=== PATIENT | male | born 1930 | race Caucasian/White ===

== ENCOUNTER 2017-01-30 19:23 | Emergency (ER) | payer MEDICARE, BC ==
[2017-01-30 19:45] VITALS: BP 114/64
--- NOTE | 2017-01-30 19:59 | EDM.PDOC ---
ED HPI GENERAL MEDICAL PROBLEM - General Chief Complaint: Wound Recheck Stated Complaint: BLEEDING FROM WOUND Time Seen by Provider: 01/30/17 19:40 Source of Information: Reports: Patient, Family History Limitations: Reports: No Limitations - History of Present Illness INITIAL COMMENTS - FREE TEXT/NARRATIVE: 86 YO WM presents to ER for wound recheck. Pt was seen by Dr Marc and had a lesion to left side of rastafari and had 4 sutures placed. Pt reports it started bleeding today prompting concern and ER evaluation. Pt without any other complaints. Denies pain, redness or discharge from wound Onset: Today Onset Date: 01/30/17 Onset Time: 17:00 Location: Reports: Face Severity: Mild Improves with: Reports: None Worsens with: Reports: None Associated Symptoms: Reports: No Other Symptoms Treatments [employer]: Reports: Dressing(s) - Related Data Allergies Allergy/AdvReac Type Severity Reaction Status Date / Time No Known Allergies Allergy Verified 04/14/13 15:51 Home Meds: Home Meds Acetaminophen [Tylenol] PRN 04/14/13 [History] Ascorbic Acid [Vitamin C] 500 mg PO DAILY 04/14/13 [History] Ergocalciferol (Vitamin D2) [Calciferol] 2 PO DAILY 04/14/13 [History] Omeprazole 20 mg PO BIDAC 04/14/13 [History] Sodium Chloride [Saline Nasal [place]] 1 spray NASBOTH PRN 04/14/13 [History] Vitamin E 400 unit PO DAILY 04/14/13 [History] guaiFENesin [Mucus Relief] 600 mg PO BID PRN 04/14/13 [History] Acetaminophen/HYDROcodone [Lortab 500-5 MG] 1 tab PO QID PRN #25 tablet [Rx] Social & Family History - Tobacco Use Years of Tobacco use: 38 Used Tobacco, but Quit: Yes Month Tobacco Last Used: 20 years ago - Recreational Drug Use Recreational Drug Use: No ED ROS GENERAL - Review of Systems Review Of Systems: See Below Constitutional: Reports: No Symptoms HEENT: Reports: No Symptoms Respiratory: Reports: No Symptoms Cardiovascular: Reports: No Symptoms Endocrine: Reports: No Symptoms GI/Abdominal: Reports: No Symptoms : Reports: No Symptoms Musculoskeletal: Reports: No Symptoms Skin: Reports: Other (left wound recheck- no active bleeding) Neurological: Reports: No Symptoms Psychiatric: Reports: No Symptoms Hematologic/Lymphatic: Reports: No Symptoms Immunologic: Reports: No Symptoms ED EXAM, SKIN/RASH Exam: See Below Exam Limited By: No Limitations General Appearance: Alert, WD/WN, No Apparent Distress Head: Atraumatic, Normocephalic Neck: Normal Inspection, Supple, Non-Tender, Full Range of Motion Respiratory/Chest: No Respiratory Distress, Lungs Clear, Normal Breath Sounds, No Accessory Muscle Use, Chest Non-Tender Cardiovascular: Normal Peripheral Pulses, Regular Rate, Rhythm, No Edema, No Gallop, No JVD, No Murmur, No Rub GI/Abdominal: Normal Bowel Sounds, Soft, Non-Tender, No Organomegaly, No Distention, No Abnormal Bruit, No Mass Back Exam: Normal Inspection, Full Range of Motion, NT Extremities: Normal Inspection, Normal Range of Motion, Non-Tender, No Pedal Edema, Normal Capillary Refill Neurological: Alert, Oriented, CN II-XII Intact, Normal Cognition, Normal Gait, Normal Reflexes, No Motor/Sensory Deficits Psychiatric: Normal Affect, Normal Mood Skin: Wound/Incision (sutures to left rastafari intact without bleeding) Course - Vital Signs Last Recorded V/S: Last Vital Signs Temp 35.5 C 01/30/17 19:43 Pulse 87 01/30/17 19:43 Resp 20 01/30/17 19:43 BP 114/64 01/30/17 19:43 Pulse Ox 93 L 01/30/17 19:43 Departure - Departure Time of Disposition: 20:00 Disposition: Home, Self-Care 01 Condition: Good Clinical Impression: Encounter for wound re-check - Discharge Information Instructions: How to Change Your Dressing, [id number], Wound Care Referrals: Natalya Rhodes MD [Primary Care Provider] - Forms: ED Department Discharge - Assessment/Plan Assessment:: 1. wound recheck- no active bleeding; no signs of infection Plan: 1. discharge home 2. dressing placed on wound 3. follow up with Dr Marc in 2 days for further evaluation and treatment
== END 2017-01-30 20:00 | disposition home or self-care (01) ==
LOC: KA.ED 19:23
DX: Z48.817 Encounter for surgical aftercare following surgery on the skin and subcutaneous tissue (principal)
CPT/HCPCS: 99282

== ENCOUNTER 2017-07-19 06:56 | Day surgery (SDC) | payer MEDICARE, BC ==
[2017-07-19] MEDS ORDERED: Sodium Chloride 0.9% 5 ML Syringe FLUSH PRN (07:00)
[2017-07-19] MEDS ORDERED: Lactated Ringers 1,000 ML IV SCH (07:00)
[2017-07-19] MEDS ORDERED: Midazolam 1 MG/ML 2 ML SDV ONE (07:15)
[2017-07-19] MEDS ORDERED: Ketamine 500 mg/10 ML MDV ONE (07:15)
[2017-07-19] MEDS ORDERED: Propofol 200 MG/20 ML SDV ONE (07:15)
[2017-07-19] MEDS ORDERED: Propofol 200 MG/20 ML SDV IV ONE (07:19)
[2017-07-19] MEDS ORDERED: Midazolam 1 MG/ML 2 ML SDV IV ONE (07:19)
[2017-07-19] MEDS ORDERED: Ketamine 500 mg/10 ML MDV IV ONE (07:19)
[2017-07-19] MEDS ORDERED: Bupivacaine 0.5% 30 ML SDV ONE (07:26)
[2017-07-19] MEDS ORDERED: Bupivacaine 0.5% 30 ML SDV INFILT ONE (08:28)
--- NOTE | 2017-07-19 09:19 | PCM.OPNOTE ---
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 Findings: The patient recently had an excision of a lesion of the right ear pinna. This was positive for invasive squamous cell carcinoma present in complete excision. A wedge resection is being planned for him today. 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 Postoperative diagnosis same Procedure performed: Wedge resection of the right ear carcinoma. Informed consent was obtained from the patient regarding this procedure. All possible complications were thoroughly discussed. The patient was taken to the operating room and kept in the supine position. Monitored anesthesia care was administered by the grain and yeast plants supervisor. The right ear was prepped. Xylocaine 1% plain was used. A wedge resection was performed. The cartilage was then closed with 4- 0 nylon and the skin with 4-0 nylon sutures. Good approximation was obtained. A sterile dressing was applied. Blood loss was 5-10 mL. No complications were encountered. The patient was transferred to the recovery room in an excellent condition.
[2017-07-19 11:46] VITALS: BP 127/62
== END 2017-07-19 11:45 | disposition home or self-care (01) ==
LOC: KA.SDS 06:56
PROVIDERS: ATTEND Family Medicine
DX: C44.222 Squamous cell carcinoma of skin of right ear and external auricular canal (principal); K21.9 Gastro-esophageal reflux disease without esophagitis; J44.9 Chronic obstructive pulmonary disease, unspecified; I48.0 Paroxysmal atrial fibrillation; N18.3 Chronic kidney disease, stage 3 (moderate); Z87.891 Personal history of nicotine dependence; Z79.899 Other long term (current) drug therapy; Z91.018 Allergy to other foods; Z85.038 Personal history of other malignant neoplasm of large intestine; Z85.46 Personal history of malignant neoplasm of prostate
CPT/HCPCS: 69110; J2250; J2704; J7120

== ENCOUNTER 2017-08-11 09:28 | Day surgery (SDC) | payer MEDICARE, BC ==
[2017-08-11] MEDS ORDERED: Sodium Chloride 0.9% 5 ML Syringe FLUSH PRN (09:30)
[2017-08-11] MEDS ORDERED: Lactated Ringers 1,000 ML IV SCH (09:30)
[2017-08-11] MEDS ORDERED: Midazolam 1 MG/ML 2 ML SDV ONE (09:43)
[2017-08-11] MEDS ORDERED: fentaNYL 100 MCG/2 ML SDV ONE ×2 (09:43→10:50)
[2017-08-11] MEDS ORDERED: Propofol 200 MG/20 ML SDV ONE (09:43)
[2017-08-11] MEDS ORDERED: ceFAZolin 1 GM Vial ONE (09:43)
[2017-08-11] MEDS ORDERED: Bupivacaine 0.5%/EPINEPHrine 1:200,000 30 ML SDV ONE (10:38)
[2017-08-11] MEDS ORDERED: Lactated Ringers 1,000 ML ONE (10:59)
[2017-08-11] MEDS ORDERED: Succinylcholine 200 MG/10 ML MDV IV ONE (11:14)
[2017-08-11] MEDS ORDERED: fentaNYL 100 MCG/2 ML SDV IV ONE (11:14)
[2017-08-11] MEDS ORDERED: Rocuronium 50 MG/5 ML Vial IV ONE (11:14)
[2017-08-11] MEDS ORDERED: ceFAZolin 1 GM Vial IV ONE (11:14)
[2017-08-11] MEDS ORDERED: Ondansetron 4 MG/2 ML SDV IV ONE (11:14)
[2017-08-11] MEDS ORDERED: Propofol 200 MG/20 ML SDV IV ONE (11:14)
[2017-08-11] MEDS ORDERED: Bupivacaine 0.5%/EPINEPHrine 1:200,000 30 ML SDV INFILT ONE (11:40)
--- NOTE | 2017-08-11 12:18 | PCM.OPNOTE ---
- General Post-Op/Procedure Note Date of Surgery/Procedure: 08/11/17 Operative Procedure(s): Excision of squamous cell carcinoma on the top of the head (scalp) and application of full-thickness graft taken from the right neck. Findings: Squamous cell carcinomas noted of the scalp. This was a somewhat large lesion and the patient could not tolerate having this removed at the clinic. He is therefore brought to the hospital to have this lesion excised and a full- thickness graft taken from the right side of the neck applied to the recipient area. 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 All possible complications were discussed including the possibility of incomplete excision, reoperation, numbness, infection, bleeding, and other unknown complications. The patient decided to proceed. He was kept in the supine position and a satisfactory general anesthetic was administered by the pantograph watcher. His right neck was thoroughly prepped. Xylocaine 1% with epinephrine was used to anesthetized an area just below the right clavicle. A full-thickness graft was taken and denuded of the fat and placed in normal saline. The donor defect was closed with 4-0 nylon sutures. A sterile pressure dressing OpSite was applied. Next we turned our attention to the scalp lesion. This was completely excised in a circular fashion. Subcutanous bleeders were ligated with 4-0 Polysorb. A clean bed was prepared. The full-thickness graft was placed into the recipient site and sutured with 4-0 nylon sutures tied over a moist tonsil sponge. The patient tolerated the procedure well. There were no operative complications. Blood loss was negligible. He was transferred to the recovery room in an excellent condition. He will be followed up in the clinic in 3 days' time.
[2017-08-11 15:28] VITALS: BP 111/76
--- NOTE | 2017-08-20 08:24 | OR ---
DATE OF SURGERY: 08/11/2017 SURGEON: Natalya Rhodes MD ADDENDUM Addition to the operative report. The surgery was done on 08/12/2017. The addition is as follows: The size of the lesion is 2.5 cm and the margins were clear. /[id number]/MODL
== END 2017-08-11 14:30 | disposition home or self-care (01) ==
LOC: KA.SDS 09:28
PROVIDERS: ATTEND Family Medicine
DX: C44.42 Squamous cell carcinoma of skin of scalp and neck (principal); N18.3 Chronic kidney disease, stage 3 (moderate); J44.9 Chronic obstructive pulmonary disease, unspecified; I48.0 Paroxysmal atrial fibrillation; K21.9 Gastro-esophageal reflux disease without esophagitis; E53.8 Deficiency of other specified B group vitamins; Z87.891 Personal history of nicotine dependence; Z91.018 Allergy to other foods
CPT/HCPCS: 00400; 88305; J0330; J0690; J2405; J2704; J3010; J7120

== ENCOUNTER 2017-11-01 07:04 | Day surgery (SDC) | payer MEDICARE, BC ==
[~2017-11-01 07:04] MED LIST: EPINEPHrine 1:10,000 1 MG/10 ML Syringe ONE; Lactated Ringers 1,000 ML IV SCH; Propofol 200 MG/20 ML SDV ONE; Sodium Chloride 0.9% 5 ML Syringe FLUSH PRN
[2017-11-01] MEDS ORDERED: Propofol 200 MG/20 ML SDV IV ONE (08:41)
[2017-11-01] MEDS ORDERED: Lidocaine 1% 50 ML MDV INJECT ONE (08:41)
[2017-11-01 09:40] VITALS: BP 137/71
--- NOTE | 2017-11-01 09:47 | PCM.OPNOTE ---
- General Post-Op/Procedure Note Date of Surgery/Procedure: 11/01/17 Operative Procedure(s): Upper GI endoscopy Findings: This patient complains of dysphagia. Pre Op Diagnosis: Dysphagia. Post-Op Diagnosis: Normal. Anesthesia Technique: MAC Primary Surgeon: Natalya Rhodes Complications: None Condition: Good Free Text/Narrative:: INFORMED CONSENT: Patient is here today for elective upper GI endoscopy. All aspects of this procedure have been discussed with the patient. All possible complications also, including possibility of perforation, infection, pain, bleeding, numbness of the throat, swallowing difficulty and unknown complications. In the event of perforation the patient may need surgical exploration to repair the defect. The patient understands fully well. Patient did not have any further questions for me at the end of my interview. The patient wishes for me to proceed. INSTRUMENT USED: Video gastroscope ANESTHESIA: [MAC] ASA CLASSIFICATION: [2] PROCEDURE PERFORMED: [Upper GI endoscopy] PHARYNX: Normal. ESOPHAGUS: Normal. Proximal: Normal. Middle: Normal. Lower: Normal. GE Junction: Normal. STOMACH: Normal. Cardia: Normal. Fundus: Normal. Lesser Curvature: Normal. Greater Curvature: Normal. Antrum: Normal. Pylorus: Normal. DUODENUM: Normal. First Part: Normal. Second Part: Normal. Third Part: Normal. RETROFLEXION: Normal. BIOPSY: None. TOLERANCE: Excellent. COMPLICATIONS: None.
== END 2017-11-01 10:15 | disposition home or self-care (01) ==
LOC: KA.SDS 07:04
PROVIDERS: ATTEND Family Medicine
PROC: 0DJ08ZZ Inspection of Upper Intestinal Tract, Via Natural or Artificial Opening Endoscopic (ICD-10-PCS; principal; 2017-11-01)
DX: R13.14 Dysphagia, pharyngoesophageal phase (principal); K21.9 Gastro-esophageal reflux disease without esophagitis; Z85.46 Personal history of malignant neoplasm of prostate; Z85.038 Personal history of other malignant neoplasm of large intestine; Z85.828 Personal history of other malignant neoplasm of skin; Z91.018 Allergy to other foods; Z79.899 Other long term (current) drug therapy
CPT/HCPCS: 00731; 85025; J2704; J7120

== ENCOUNTER 2017-11-26 23:42 | Emergency (ER) | payer MEDICARE, BC ==
[2017-11-27 00:03] VITALS: BP 153/72
--- NOTE | 2017-11-27 00:26 | EDM.PDOC ---
ED HPI GENERAL MEDICAL PROBLEM - General Chief Complaint: General Stated Complaint: pill stuck in throat Time Seen by Provider: 11/27/17 00:10 Source of Information: Reports: Patient History Limitations: Reports: No Limitations - History of Present Illness INITIAL COMMENTS - FREE TEXT/NARRATIVE: 87-year-old male presents emergency room with complaints of dysphagia due to taken a pill this evening. Patient states that he feels like he has a pill stuck in his throat. He's been taken some Mucinex. He's not had any shortness of breath or difficulty breathing he has no other complaints Onset: Today Onset Date: 11/27/17 Onset Time: 23:00 Duration: Minutes: Location: Reports: Neck Quality: Reports: Ache Severity: Mild Improves with: Reports: None Worsens with: Reports: None Associated Symptoms: Reports: No Other Symptoms Throat Pain Score (Numeric/FACES): 4 - Related Data Allergies Allergy/AdvReac Type Severity Reaction Status Date / Time CINNAMON AND PEPPER Allergy GET STUCK Uncoded 11/27/17 00:00 IN THROAT Home Meds: Home Meds Ascorbic Acid [Vitamin C] 500 mg PO DAILY 04/14/13 [History] Omeprazole 20 mg PO DAILY 04/14/13 [History] Cyanocobalamin (Vitamin B-12) [B-12] 1,000 mcg PO DAILY PRN 07/16/17 [History] Trolamine Salicylate [Arthricreme] 1 applic TOP ASDIRECTED 07/16/17 [History] Ubidecarenone [Coenzyme Q10] 200 mg PO DAILY 07/16/17 [History] Aspirin [Adult Aspirin] 81 mg PO DAILY 10/29/17 [History] Cholecalciferol (Vitamin D3) [Delta D3] 400 unit PO DAILY 10/29/17 [History] Past Medical History HEENT History: Reports: Hard of Hearing, Impaired Vision Musculoskeletal History: Reports: Amputation, Fracture, Other (See Below) Other Musculoskeletal History: Right great toe. Oncologic (Cancer) History: Reports: Colon, Squamous Cell Carcinoma Dermatologic History: Reports: Other (See Below) Other Dermatologic History: skin lesion removed to left temporal region of face and right ear. - Infectious Disease History Infectious Disease History: Reports: Chicken Pox, Measles, Mumps - Past Surgical History Head Surgeries/Procedures: Reports: None GI Surgical History: Reports: Cholecystectomy, Other (See Below) Other GI Surgeries/Procedures: Colon surgery Social & Family History - Family History Family Medical History: Noncontributory - Caffeine Use Caffeine Use: Reports: Coffee ED ROS GENERAL - Review of Systems Review Of Systems: ROS reveals no pertinent complaints other than HPI. ED EXAM, GENERAL - Physical Exam Exam: See Below Exam Limited By: No Limitations General Appearance: Alert, WD/WN, No Apparent Distress Nose: Normal Inspection Throat/Mouth: Normal Inspection, Normal Lips, Normal Oropharynx, Normal Voice, No Airway Compromise Head: Atraumatic Neck: Normal Inspection, Supple, Non-Tender, Full Range of Motion Respiratory/Chest: No Respiratory Distress, Lungs Clear Cardiovascular: Regular Rate, Rhythm Course - Vital Signs Last Recorded V/S: Last Vital Signs Temp 98.1 F 11/27/17 00:01 Pulse 89 11/27/17 00:01 Resp 20 11/27/17 00:01 BP 153/72 H 11/27/17 00:01 Pulse Ox 92 L 11/27/17 00:01 Departure - Departure Time of Disposition: 00:23 Disposition: Home, Self-Care 01 Condition: Good Clinical Impression: Pill dysphagia - Discharge Information Instructions: Choking, Adult Referrals: Natalya Rhodes MD [Primary Care Provider] - Forms: ED Department Discharge Additional Instructions: 1. Drink plenty of water. 2. Pill will dissolve. 3. Follow-up with your primary care as needed. - Assessment/Plan Assessment:: Pill dysphasia Plan: 1. Drink plenty of water. 2. Pill will dissolve. 3. Follow-up with your primary care as needed.
== END 2017-11-27 00:25 | disposition home or self-care (01) ==
LOC: SUPCPDRO 23:42 → KA.ED 23:42
DX: R13.10 Dysphagia, unspecified (principal); Z91.018 Allergy to other foods; Z79.899 Other long term (current) drug therapy
CPT/HCPCS: 99283